=== PATIENT | female | born 1945 | race Caucasian/White ===

== ENCOUNTER 2021-07-07 00:20 | Day surgery (SDC) | payer MEDICARE, SELFPAY ==
[2021-06-25 14:31] VITALS: BMI 34.0
--- NOTE | 2021-07-06 17:37 | PM.HPGS ---
History of Present Illness History of Present Illness Consent: Risks, benefits, and alternatives have been discussed and questions answered. Patient agrees to proceed with procedure. Chief complaint: dysphagia Narrative: Renay Llamas is a 75 year old female referred because of dysphagia for solid food. she has had esophageal dilatation in the past. She takes pantoprazole p.r.n. Review of Systems Review of Systems: All systems reviewed & are unremarkable except as noted in HPI and below PMFSH Past Medical History Medical History Breast cancer GERD (gastroesophageal reflux disease) HTN (hypertension) Hypothyroidism Obesity Surgical History Surgical History History of mastectomy Social History Social History Smoking status: Never smoker Alcohol intake: never Substance use: never Substance use type: does not use Living arrangements: with family Spiritual care concerns: No Meds Home Medications and Allergies Home Medications Medication Instructions Recorded Confirmed Type amlodipine [Norvasc] 5 mg PO DAILY 06/25/21 06/25/21 History levothyroxine 75 mcg PO DAILY 06/25/21 06/25/21 History pantoprazole [Protonix] 40 mg PO PRN PRN 06/25/21 06/25/21 History tamoxifen 20 mg PO DAILY 06/25/21 06/25/21 History Allergies Allergy/AdvReac Type Severity Reaction Status Date / Time adhesive tape AdvReac Blister Verified 07/07/21 09:35 Sulfa (Sulfonamide AdvReac Hives Verified 07/07/21 09:35 Antibiotics) Exam Resp: Auscultation: clear to auscultation bilaterally Cardio: Rate: regular rate Rhythm: regular rhythm GI: GI Palp: Yes Soft to palpation and No Tenderness to palpation present (GI) Assessment and Plan Assessment and plan (1) Dysphagia: Code(s): R13.10 - Dysphagia, unspecified Status: Acute Assessment and Plan: EGD with possible biopsy or dilatation or cautery.
--- NOTE | 2021-07-07 09:32 | WPDANESEPPF ---
Anes - Initial Pre Proc Eval Procedure: Operation Date: 07/07/21 10:30 Proposed Procedures p Esophagogastroduodenoscopy - James Brooke MD Date/Time: 07/07/21 09:32 Surgeon: James Brooke MD Pre Op Diagnosis: dysphagia Patient Data Age: 75 Gender: F Height: 1.52 m Weight: 79 kg Allergies Allergy/AdvReac Type Severity Reaction Status Date / Time adhesive tape AdvReac Blister Verified 07/07/21 09:35 Sulfa (Sulfonamide AdvReac Hives Verified 07/07/21 09:35 Antibiotics) Home Medications Medication Instructions Recorded Confirmed Type amlodipine [Norvasc] 5 mg PO DAILY 06/25/21 06/25/21 History levothyroxine 75 mcg PO DAILY 06/25/21 06/25/21 History pantoprazole [Protonix] 40 mg PO PRN PRN 06/25/21 06/25/21 History tamoxifen 20 mg PO DAILY 06/25/21 06/25/21 History Patient hx anesthesia problems: none Family hx anesthesia problems: none Results Review: All pre-operative results and documents have been reviewed as part of the pre-operative evaluation. [facility] Past Medical History Medical History (Updated 07/07/21 @ 09:32 by Martin Wing MD) Breast cancer GERD (gastroesophageal reflux disease) HTN (hypertension) Hypothyroidism Obesity Surgical History Surgical History (Updated 07/07/21 @ 09:37 by Martin Wing MD) History of mastectomy Social History Social History Smoking status: Never smoker Alcohol intake: never Substance use: never Substance use type: does not use Living arrangements: with family Spiritual care concerns: No Anes - Eval Final PreProcedure Day of Procedure 07/07/21 09:32 Patient weight: obese Heart: regular rate and rhythm Lungs: clear to auscultation Airway: Mallampati scale class II Neurological: alert and oriented Last oral intake: >/= 8 hours ASA classification: III Emergent: no Anesthetic plan: proceed Anesthesia type and monitoring: general GIVS and standard monitoring Results Review: All pre-operative results and documents have been reviewed as part of the pre-operative evaluation. Informed Consent: The patient's anesthetic plan and its attendant risks and benefits were discussed with the patient/family/POA. Questions were solicited and answers provided to the satisfaction of the patient/family/POA.
[2021-07-07] MEDS: LACTATED RINGERS 1,000 ML 150 ML IV CONT (09:38)
[2021-07-07 09:41] VITALS: BP 167/76; PULSE 73; RESP 16; TEMP 36.6; O2SAT 98
[2021-07-07] MEDS: BENZOCAINE (*SP) 60 ML SPRAY CAN (HURRICAINE) 1 SPRAY MUCOUS MEM (10:28)
[2021-07-07 10:44] VITALS: BP 124/69; PULSE 87; RESP 23; O2SAT 95
[2021-07-07 10:54] VITALS: BP 124/62; PULSE 85; RESP 25; O2SAT 99
[2021-07-07 11:04] VITALS: BP 117/48; PULSE 91; RESP 21; O2SAT 99
== END 2021-07-07 11:15 | disposition home or self-care (01) ==
PROVIDERS: PCP Internal Medicine; Visit Provider Internal Medicine Gastroenterology
PROC: 0DJ08ZZ Inspection of Upper Intestinal Tract, Via Natural or Artificial Opening Endoscopic (ICD-10-PCS; CPT 43235; principal; 2021-07-07 10:30)
DX: K22.2 Esophageal obstruction (principal); K44.9 Diaphragmatic hernia without obstruction or gangrene; K21.9 Gastro-esophageal reflux disease without esophagitis; I10 Essential (primary) hypertension; E03.9 Hypothyroidism, unspecified; Z85.3 Personal history of malignant neoplasm of breast; Z79.810 Long term (current) use of selective estrogen receptor modulators (SERMs); E66.9 Obesity, unspecified; Z68.33 Body mass index [BMI] 33.0-33.9, adult
CPT/HCPCS: 43249; 88305; C1726; J2704; J7120

== ENCOUNTER → 2021-07-28 14:25 | Outpatient (CLI) | payer MEDICARE, SELFPAY ==
--- NOTE | ~2021-07-28 | DEXA_ITS ---
Bone Density Report Name: MARY CARMEN SIMS Age: 75 Sex: Female Ethnicity: White Date of : 1945 Indication: monitoring treatment; parental hip fracture; height loss; cancer; hysterectomy; postmenopausal Referring Provider: Phan, George Hargrove Study: Bone densitometry was performed. Exam Date: July 28, 2021 Accession number: [id number] Bone Density: Region BMD T-score Z-score Classification AP Spine (L1-L4) 0.950 -0.9 1.6 Normal Femoral Neck (Left) 0.776 -0.7 1.5 Normal Total Hip (Left) 1.028 0.7 2.5 Normal Femoral Neck (Right) 0.771 -0.7 1.4 Normal Total Hip (Right) 0.937 0.0 1.8 Normal Total Hip Mean 0.983 0.4 2.2 Normal World Health Organization criteria for BMD impression classify patients as: Normal (T-score at or above -1.0), Osteopenia (T-score between -1.0 and -2.5), or Osteoporosis (T-score at or below -2.5). 10-year Fracture Risk: FRAX not reported because: All T-scores for Spine Total, Hip Total, Femoral Neck at or above -1.0 Treated for osteoporosis Previous Exams: Region Exam Age BMD T-score BMD Change BMD Change Date g/cm2 vs Baseline vs Previous AP Spine(L1-L4) 07/28/2021 75 0.950 -0.9 0.011 0.007 05/07/2018 72 0.942 -1.0 0.004 -0.030* 04/09/2015 69 0.972 -0.7 0.034* 0.040* 03/22/2012 66 0.932 -1.0 -0.007 0.018 02/19/2010 64 0.913 -1.2 -0.025* -0.010 02/04/2008 62 0.924 -1.1 -0.015 -0.015 01/04/2006 60 0.938 -1.0 Total Hip(Left) 07/28/2021 75 1.028 0.7 -0.122* -0.127* 05/07/2018 72 1.155 1.7 0.005 0.150* 04/09/2015 69 1.006 0.5 -0.144* -0.037* 03/22/2012 66 1.042 0.8 -0.108* 0.088* 02/19/2010 64 0.955 0.1 -0.195* -0.037* 02/04/2008 62 0.991 0.4 -0.159* -0.159* 01/04/2006 60 1.150 1.7 Total Hip(Right) 07/28/2021 75 0.937 0.0 -0.153* -0.146* 05/07/2018 72 1.083 1.2 -0.006 0.116* 04/09/2015 69 0.967 0.2 -0.123* -0.026 03/22/2012 66 0.993 0.4 -0.097* 0.023 02/19/2010 64 0.970 0.2 -0.120* 0.006 02/04/2008 62 0.964 0.2 -0.126* -0.126* 01/04/2006 60 1.090 1.2 *Denotes significance at 95% confidence level, LSC for AP Spine = 0.022 g/cm2, LSC for Total Hip = 0.027 g/cm2 Clinical Information Provided by Patient:
== END ==
PROVIDERS: PCP Internal Medicine; Visit Provider Internal Medicine
DX: Z78.0 Asymptomatic menopausal state (principal)
CPT/HCPCS: 77080